=== PATIENT | male | born 1950 | race Caucasian/White ===

== ENCOUNTER 2017-02-03 06:04 | Inpatient (IN) | payer OTHER, MEDICARE ==
[~2017-02-03] VITALS: Ht 180.3 cm; Wt 99.8 kg
[2017-02-03] MEDS ORDERED: SODIUM CHLORIDE 0.9% 1,000 ML IV ONE (06:16)
[2017-02-03] MEDS ORDERED: ALLO300T PO (06:19)
[2017-02-03] MEDS ORDERED: VALS320T2 PO (06:19)
[2017-02-03] MEDS ORDERED: TAMO10TA PO (06:20)
[2017-02-03] MEDS ORDERED: SIMV10TA3 PO (06:20)
[2017-02-03] MEDS ORDERED: ZOLP-413 PO (06:21)
[2017-02-03] MEDS ORDERED: ASPIRIN 81 MG TABLET CHEW ONE (06:26)
[2017-02-03] MEDS ORDERED: ASPIRIN 81 MG TABLET CHEW PO ONE (06:30)
[2017-02-03] MEDS ORDERED: SODIUM CHLORIDE FLUSH 10ML SYR IVF ONE (06:30)
[2017-02-03] MEDS ORDERED: SODIUM CHLORIDE 0.9% 1,000ML IVBOLUS ONE (06:30)
[2017-02-03 07:09] LABS: ASPARTATE AMINO TRANSFERASE 21 U/L (15-37); BLOOD UREA NITROGEN 24 mg/dL (7-18)
[2017-02-03 07:14] LABS: IS PT STATUS REG ER OR PRE ER? YES
[2017-02-03] MEDS ORDERED: SODIUM CHLORIDE FLUSH 10ML SYR IVF PRN (08:00)
[2017-02-03 08:44] VITALS: BP 112/57
[2017-02-03] MEDS: ALLOPURINOL 300 MG TABLET PO SCH (09:00)
[2017-02-03] MEDS ORDERED: hydrALAzine 20 MG/ML, 1ML IVPush PRN (09:30)
[2017-02-03] MEDS ORDERED: ACETAMINOPHEN 325 MG TABLET PO PRN (09:30)
[2017-02-03] MEDS ORDERED: PROMETHAZINE 25 MG/ML, 1ML IM PRN (09:30)
[2017-02-03] MEDS ORDERED: ENOXAPARIN 40 MG/0.4 ML SQ SCH (09:30)
[2017-02-03 12:03] LABS: IS PT STATUS REG ER OR PRE ER? NO
[2017-02-03] MEDS: SODIUM CHLORIDE 0.9% 1,000 ML IV SCH ×2 (12:27→19:26)
[2017-02-03] MEDS ORDERED: TAMS-11 PO (12:28)
[2017-02-03 13:29] VITALS: BP 130/74
[2017-02-03 15:14] LABS: IS PT STATUS REG ER OR PRE ER? NO
[2017-02-03 19:24] VITALS: BP 96/54
[2017-02-03] MEDS ORDERED: SIMVASTATIN 10 MG TABLET PO SCH (21:00)
[2017-02-04 01:23] VITALS: BP 98/61
[2017-02-04] MEDS: SODIUM CHLORIDE 0.9% 1,000 ML IV SCH ×2 (01:36→08:45)
[2017-02-04 06:32] LABS: ASPARTATE AMINO TRANSFERASE 17 U/L (15-37); BLOOD UREA NITROGEN 18 mg/dL (7-18)
[2017-02-04 07:15] VITALS: BP 95/56
[2017-02-04] MEDS: ALLOPURINOL 300 MG TABLET PO SCH (08:43)
[2017-02-04 09:36] VITALS: BP_SYST 114; BP_SYST 118; BP_DIAS 66
== END 2017-02-04 12:00 | disposition home or self-care (01) | DRG 74 ==
LOC: ED 07:46 → EDIP 07:47 → ED 08:20 → 5SO 08:38 → DCLOUNGE 02-04 11:35
PROVIDERS: ADMIT Internal Medicine; ATTEND Family Medicine
DX: G90.8 Other disorders of autonomic nervous system (principal); N17.9 Acute kidney failure, unspecified; R55 Syncope and collapse; I95.9 Hypotension, unspecified; I10 Essential (primary) hypertension; R00.1 Bradycardia, unspecified; E78.5 Hyperlipidemia, unspecified; E86.9 Volume depletion, unspecified; M10.9 Gout, unspecified; Z85.46 Personal history of malignant neoplasm of prostate; Z92.3 Personal history of irradiation; Z79.899 Other long term (current) drug therapy
CPT/HCPCS: 36415; 70450; 71010; 80053; 83735; 84439; 84443; 84484; 85025; 93005; 93306; 93880; 96360; J1650; J7030

== ENCOUNTER → 2019-01-13 | Outpatient (CLI) | payer MEDICARE, OTHER ==
[~2019-01-13] MED LIST: ALLO300T PO; ASCO10004 PO; CETI-158 PO; LOSA25TA25 PO; MULT-717 PO; Melatonin PO; SIMV10TA3 PO; SIMV40TA3 PO; TAMO10TA PO; TAMS-11 PO; VALS320T2 PO; ZOLP-413 PO
[2019-01-13 10:27] LABS: BASOPHILS # (AUTO) 0.02 x10^3/uL (0-0.1); BASOPHILS % (AUTO) 0 % (0-1); EOSINOPHILS # (AUTO) 0.09 x10^3/uL (0-0.4); EOSINOPHILS % (AUTO) 2 % (1-7); LYMPHOCYTES # (AUTO) 1.32 x10^3/uL (1-3.4); LYMPHOCYTES % (AUTO) 26 % (22-44); MD NO; MEAN CORPUSCULAR HEMOGLOBIN 32.6 pg (27.5-34.5); MEAN CORPUSCULAR HGB CONC 33.4 g/dL (33.2-36.2); MEAN CORPUSCULAR VOLUME 97.8 fL (81-97); MEAN PLATELET VOLUME 7.6 fL (7.4-10.4); MONOCYTES # (AUTO) 0.33 x10^3/uL (0.2-0.8); MONOCYTES % (AUTO) 6 % (2-9); NEUTROPHILS # (AUTO) 3.38 x10^3/uL (1.8-6.8); NEUTROPHILS % (AUTO) 66 % (42-75); PLATELET COUNT 197 x10^3/uL (130-400); RED BLOOD COUNT 4.63 x10^6/uL (4.38-5.82); RED CELL DISTRIBUTION WIDTH 13.1 % (9.4-14.8)
[2019-01-13 10:36] LABS: MICROSCOPIC NOT IND
[2019-01-13 10:39] LABS: ALANINE AMINOTRANSFERASE 42 U/L (12-78); ALBUMIN 3.8 g/dL (3.4-5.0); ANION GAP 6 mmol/L (5-15); CALCIUM 8.7 mg/dL (8.5-10.1); CHLORIDE 110 mmol/L (98-107); CREATININE 1.03 mg/dL (0.7-1.3)
[2019-01-13 10:41] LABS: ALKALINE PHOSPHATASE 53 U/L (45-117); BILIRUBIN,TOTAL 1.2 mg/dL (0.2-1.0)
== END | disposition home or self-care (01) ==
LOC: STAR 09:33
PROVIDERS: ATTEND Urology
DX: Z01.818 Encounter for other preprocedural examination (principal); N43.3 Hydrocele, unspecified; R00.1 Bradycardia, unspecified; R94.31 Abnormal electrocardiogram [ECG] [EKG]
CPT/HCPCS: 36415; 80053; 81003; 85025; 87086; 93005

== ENCOUNTER 2019-01-20 09:54 | Day surgery (SDC) | payer MEDICARE, OTHER ==
[~2019-01-20] VITALS: Ht 180.3 cm; Wt 96.5 kg
[2019-01-20 10:20] VITALS: BP 159/82
[2019-01-20] MEDS ORDERED: LACTATED RINGERS 1,000 ML IV SCH (10:26)
[2019-01-20] MEDS ORDERED: FENTANYL PF 250 MCG/5ML ONE (10:31)
[2019-01-20] MEDS ORDERED: MIDAZOLAM 1 MG/ML, 2ML ONE (10:31)
[2019-01-20] MEDS ORDERED: CEFAZOLIN 1,000 MG ONE (10:32)
[2019-01-20] MEDS ORDERED: PROPOFOL 10 MG/ML, 20ML ONE (10:32)
[2019-01-20] MEDS ORDERED: DEXAMETHASONE 4 MG/ML, 1ML ONE (10:32)
[2019-01-20] MEDS ORDERED: LIDOCAINE-MPF 2% ,5ML ONE (10:32)
[2019-01-20] MEDS ORDERED: ONDANSETRON 2MG/ML, 2ML ONE (10:32)
[2019-01-20] MEDS ORDERED: BUPIVACAINE/PF 0.5% ONE (11:55)
[2019-01-20] MEDS ORDERED: PHENYLEPHRINE 10 MG/ML ONE (12:03)
[2019-01-20] MEDS ORDERED: LABETALOL 5MG/ML, 20ML IV PRN (12:30)
[2019-01-20] MEDS ORDERED: ONDANSETRON ODT 8 MG PO PRN (12:30)
[2019-01-20] MEDS ORDERED: PROMETHAZINE 25 MG SUPP PR PRN (12:30)
[2019-01-20] MEDS ORDERED: ONDANSETRON 2MG/ML, 2ML IV PRN (12:30)
[2019-01-20] MEDS ORDERED: FENTANYL PF 100 MCG/2ML IV PRN (12:30)
[2019-01-20] MEDS ORDERED: ACETAMINOPHEN 325 MG TABLET PO PRN (12:30)
[2019-01-20] MEDS ORDERED: OXYcodone 5 MG/5 ML ORAL.SOL UDC PO PRN (12:30)
[2019-01-20] MEDS ORDERED: hydrALAzine 20 MG/ML, 1ML IV PRN (12:30)
[2019-01-20] MEDS ORDERED: HYDROmorphone 2 MG/ML, 1ML IVPush PRN (12:30)
[2019-01-20] MEDS ORDERED: PROMETHAZINE 25 MG/ML, 1ML IV PRN (12:30)
== END 2019-01-20 15:10 | disposition home or self-care (01) ==
LOC: OUT 09:54
PROVIDERS: ATTEND Urology
DX: N43.3 Hydrocele, unspecified (principal); I10 Essential (primary) hypertension; E78.00 Pure hypercholesterolemia, unspecified; M10.9 Gout, unspecified; Z87.891 Personal history of nicotine dependence; Z72.89 Other problems related to lifestyle; Z98.890 Other specified postprocedural states
CPT/HCPCS: 55040; 88302; J0690; J1100; J2250; J2370; J2405; J2704; J3010; J7120